=== PATIENT | female | born 1985 | race Two or more races ===

== ENCOUNTER 2016-12-27 07:43 | Outpatient (CLI) | payer OTHER ==
[~2016-12-27] VITALS: Ht 170.2 cm; Wt 86.4 kg
[~2016-12-27 07:43] MED LIST: PERCOCET 5/31 TABLET PO; PRENATAL + DHA1 EAC1 PO
[2016-12-27 08:37] VITALS: BP 122/77
[2016-12-27 09:23] VITALS: BP 118/73
[2016-12-27] MEDS ORDERED: PRENATAL TABLE1 EACH PO (09:37)
[2016-12-28] MEDS ORDERED: IBUPROFEN800 MG PO (10:27)
== END 2016-12-27 09:50 | disposition home or self-care (01) ==
LOC: LDRP-OP 07:43 → 2WEST 07:44
DX: O99.89 Other specified diseases and conditions complicating pregnancy, childbirth and the puerperium (principal); Z3A.00 Weeks of gestation of pregnancy not specified
CPT/HCPCS: 59025; G0378

== ENCOUNTER 2016-12-28 01:43 | Inpatient (IN) | payer OTHER ==
[~2016-12-28] VITALS: Ht 170.2 cm; Wt 86.0 kg
[2016-12-28] VITALS (22 sets, daily range): BP systolic 109–146; BP diastolic 50–98
[~2016-12-28 01:43] MED LIST changes: +PRENATAL TABLE1 EACH PO
[2016-12-28 03:18] LABS: EOSINOPHIL (%) 0.5 % (0-5); EOSINOPHIL COUNT 0.1 K/uL (0-0.3); HEMATOCRIT 35.7 % (36.0-46.0); IMMATURE GRANULOCYTE (%) 0.2 % (0.0-0.7); IMMATURE GRANULOCYTE COUNT 0.3 K/uL; LYMPHOCYTE COUNT 2.6 K/uL (1.0-2.8); MCH 32.3 PG (29.0-34.0); MCHC 33.9 G/DL (30.0-36.0); MCV 95.2 FL (83-99); MEAN PLAT.VOLUME 10.5 uM^3 (9.5-12.4); MONOCYTE (%) 8.6 % (3-12); MONOCYTE COUNT 1.1 K/uL (0-0.8); NEUTROPHIL (%) 69.3 % (45-76); NEUTROPHIL COUNT 8.5 K/uL (1.8-6.4); PLATELET COUNT 253 K/uL (156-360); RBC DIS.WIDTH-CV 13.3 % (11.8-14.6); RBC DIS.WIDTH-SD 43.9 % (39-53); RED BLOOD COUNT 3.75 M/uL (3.80-5.20); WHITE BLOOD COUNT 12.3 K/uL (4.1-10.2)
[2016-12-28 04:00] LABS: DRSB INTERNAL CONTROL PASS; PROBE CHECK PASS; SPECIMEN PROCESSING CONTROL PASS
[2016-12-28] MEDS ORDERED: IBUPROFEN800 MG PO (10:27)
[2016-12-29 07:28] VITALS: BP 121/67
[2016-12-29 15:26] VITALS: BP 129/74
[2016-12-29 16:28] LABS: AMPHETAMINES QUANT VALUE 0 NG/ML; BARBITUATES QUANT VALUE 0 NG/ML; BENZODIAZEPINES QUANT VALUE 0 NG/ML; BENZODIAZEPINES, URINE SCREEN Negative (200 ng/mL); MARIJUANA QUANT VALUE 0 NG/ML; OPIATES QUANTITATIVE VALUE 0 NG/ML; PHENCYCLIDINE QUANT VALUE 0 NG/ML
[2016-12-29 22:45] VITALS: BP 116/74
[2016-12-30 09:00] VITALS: BP 112/62
== END 2016-12-30 15:08 | disposition home or self-care (01) | DRG 775 ==
LOC: LDRP-OP 01:43 → 2WEST 01:44 → LDRP-OP 01-31 09:56
PROVIDERS: Midwife; Nurse Practitioner
PROC: 10E0XZZ Delivery of Products of Conception, External Approach (ICD-10-PCS; principal; 2016-12-28)
PROC: 00HU33Z Insertion of Infusion Device into Spinal Canal, Percutaneous Approach (ICD-10-PCS; principal; 2016-12-28)
PROC: 3E0S3CZ (ICD-10-PCS; principal; 2016-12-28)
DX: O70.0 First degree perineal laceration during delivery (principal); O69.81X0 Labor and delivery complicated by cord around neck, without compression, not applicable or unspecified; Z3A.39 39 weeks gestation of pregnancy; Z37.0 Single live birth
CPT/HCPCS: 80306 90; 85025; 87081; 87653; C1755; J0595; J2540; J7120